=== PATIENT | female | born 1970 | race Caucasian/White ===

== ENCOUNTER → 2020-07-28 13:46 | Outpatient (CLI) | payer BC, SELFPAY ==
--- NOTE | ~2020-07-28 | CT_ITS ---
EXAMINATION: CT brain wo con DATE: 07/28/2020 14:19 INDICATION: Chronic tension headaches TECHNIQUE: Computed tomography (CT) of the head was performed without intravenous contrast. The dose- length product was 599.57 mGy-cm. The mA was adjusted according to patient size. Iterative reconstruc tion technique was employed. COMPARISON: None FINDINGS: No acute intracranial hemorrhage, infarction, mass or mass effect. No ventriculomegaly or m idline shift. Basilar cisterns are patent. Paranasal sinuses are pneumatized. Midline sagittal images are unremarkable. IMPRESSION: 1. No acute intracranial abnormality. Reviewed, dictated and finalized at location B. O FLOATER
--- NOTE | ~2020-07-28 | XR_ITS ---
EXAMINATION:XR cervical spine 4-5V DATE: 07/28/2020 15:12 INDICATION: Neck pain TECHNIQUE: AP, lateral, lateral swimmers and odontoid views of the cervical spine are provided. COMPARISON: None FINDINGS: Alignment is normal. Odontoid is intact. Normal atlantoaxial interval. Vertebral body heights are no rmal. Disc spaces are normal. Negligible uncovertebral and facet osteoarthritis. Prevertebral soft ti ssues are normal. Bilateral apices of the lungs are clear. IMPRESSION: 1. Negligible cervical spondylosis. Reviewed, dictated and finalized at location A. [employer] WORKER
== END ==
PROVIDERS: PCP Chiropractor; Visit Provider Chiropractor
DX: G44.221 Chronic tension-type headache, intractable (principal); M47.812 Spondylosis without myelopathy or radiculopathy, cervical region
CPT/HCPCS: 70450; 72050

== ENCOUNTER 2022-04-17 09:15 | Outpatient (CLI) | payer BC, SELFPAY ==
[2022-04-20 04:27] LABS: CA-125 7 U/mL (<35)
== END 2022-04-17 09:16 | disposition home or self-care (01) ==
PROVIDERS: Visit Provider Student in an Organized Health Care Education/Training Program
DX: R19.00 Intra-abdominal and pelvic swelling, mass and lump, unspecified site (principal)
CPT/HCPCS: 36415; 81500; 86304

== ENCOUNTER 2022-05-09 14:14 | Outpatient (CLI) | payer BC, SELFPAY ==
--- NOTE | 2022-05-09 14:35 | ECG_ITS ---
Measurements Intervals [place] Rate: 47 P: 54 MD: 165 QRS: 26 QRSD: 122 T: 63 QT: 416 QTc: 370 Interpretive Statements SINUS BRADYCARDIA INCOMPLETE RIGHT BUNDLE BRANCH BLOCK BORDERLINE T WAVE ABNORMALITY- HIGH LATERAL LEADS BASELINE ARTIFACT- I, III, AVR, AVL, AVF, V1-V3 ABNORMAL ECG NO PREVIOUS ECG AVAILABLE FOR COMPARISON Electronically Signed On 05-09-2022 15:31:38 ARTIFICIAL LIMB FITTER by Ulises Espino D.O.
[2022-05-09 14:48] LABS: Hematocrit 37.6 % (37.0-47.0); Hemoglobin 12.2 g/dL (12.0-15.0); Mean Corpuscular HGB Conc 32.4 g/dl (32-36); Mean Corpuscular Hemoglobin 30.3 pg (26-34); Mean Corpuscular Volume 93.5 fl (80-100); Mean Platelet Volume 10.2 fl (7.4-10.4); Platelet Count Result 198 k/mm3 (150-375); Red Blood Count 4.02 M/mm3 (4.2-5.4); Red Cell Distribution Width 12.9 % (11.5-14.5); White Blood Count 5.2 K/mm3 (4.5-10.0)
== END 2022-05-09 14:15 | disposition home or self-care (01) ==
LOC: ANHLAB 14:17
PROVIDERS: Referring Provider Nurse Practitioner; Visit Provider Student in an Organized Health Care Education/Training Program
DX: Z01.818 Encounter for other preprocedural examination (principal); R19.00 Intra-abdominal and pelvic swelling, mass and lump, unspecified site; F17.200 Nicotine dependence, unspecified, uncomplicated; R94.31 Abnormal electrocardiogram [ECG] [EKG]
CPT/HCPCS: 36415; 85027; 86850; 86900; 86901; 93005

== ENCOUNTER 2022-05-24 00:38 | Day surgery (SDC) | payer BC, SELFPAY ==
[2022-05-09 10:24] VITALS: BMI 23.3
--- NOTE | 2022-05-09 10:26 | SUR.PREOP ---
Report to the Outpatient Waiting Room, entrance under the green pavilion located off [address], at time _1000___ on date _05/24/22 . Planned Procedure Time: _1200 . Time changes happen often and if your time is changed the preop area will call you the afternoon before. - You and your visitor will be asked to self-screen and do not enter if you have any COVID symptoms. - Only one visitor is requested with a max of two and NO children visitors are allowed at this time. - The patient visitor may be requested to leave or wait in car when not with patient due to distancing restrictions. - A mask is optional within the hospital. Patients may have clear liquids (water, carbonated beverages, clear teas, apple juice) until 3 hours prior to surgery with a maximum of 20 ounces. - No food from midnight until time of surgery - Infants may have breast milk until 4 hours before surgery, formula 6 hours prior to surgery. - Children will be allowed to drink immediately following surgery. If applicable, please bring a bottle or sippy cup to assist with drinking. Juice, water, soda, and popsicles are readily available. For infants on formula, please bring formula the day of surgery. Pacifiers are allowed. Take the following medications with a SIP of water the morning of surgery: _alprazolam,aripiprazole,bupropion,duloxetine Medications to discontinue per physician ____n/a Date to take last dose____n/a Please no make-up, nail nigerien, hairspray, perfume, deodorant, or body powder the day of surgery. No jewelry (including any body piercings) or valuables the day of surgery, leave them at home. Please take a shower or bath the night before, or the morning of, surgery with an antibacterial soap. Wear comfortable, loose fitting clothing. Children are encouraged to wear pajamas. - Jewelry must be removed prior to entering the operating room. Rings and piercings that are not removed may be cut off. - The hospital will not accept responsibility for valuables. - Please leave all valuables, including medications, at home the day of surgery. If you are going home after surgery, a licensed class a regional drivers must drive you home. - NO public transportation without another adult if you receive anesthesia. - We recommend that an adult stay with you for 24 hours following discharge. - We also recommend that you do not drive, make important decision, drink alcoholic beverages, or take any drugs that were not prescribed by your health care provider for at least 24 hours after your discharge time. For Pediatric surgeries, we recommend two adults accompany the child home. Follow any additional instructions given to you from your surgeon. If you or anyone in your household have experienced Covid symptoms in the past week, please notify your surgeon or the nurse liaison at the phone number below for possible testing. Telephone instructions given to _edward gillette and asked if any additional questions and then verbalized understanding. Patient advised to call surgeon office or pre surgery nurse liaison [phone] if any additional questions.
--- NOTE | 2022-05-23 14:29 | PM.IMHP ---
H&P: HPI History of Present Illness Date/Time: 05/23/22 14:29 Chief Complaint: Adnexal mass Narrative: 51-year-old female here for laparoscopic bilateral oophorectomy for adnexa mass.? Patient had a CT scan to evaluate her kidneys and had an incidental finding of a complex left ovarian mass.? Patient had pelvic ultrasound which confirmed findings.? Patient had CA- 125 levels drawn which were within normal levels.? Patient reports a paternal aunt with ovarian cancer. Pt had a hysterectomy previously for AUB. Pt requests oophorectomy. Review of Systems Cardiovascular: Cardiovascular: Denies chest pain, Denies leg edema, Denies palpitations, Denies dyspnea and Denies dyspnea on exertion Respiratory: Respiratory: Denies cough, Denies dyspnea and Denies dyspnea on exertion Gastrointestinal: Gastrointestinal: Denies abdominal pain, Denies constipation, Denies diarrhea, Denies nausea and Denies vomiting Genitourinary: Genitourinary: Denies hematuria, Denies urinary frequency, Denies dysuria, Denies pelvic pain, Denies urinary incontinence and Denies vaginal discharge Neurologic: Reports system reviewed and no additional complaints, except as documented Psychiatric: Psychiatric: Reports no additional psychiatric complaints Endocrine: Endocrine: Denies palpitations PMFSH Past Medical History Medical History Anxiety Depression History of hypertension Pelvic mass Surgical History Surgical History Delivery by section x 3 H/O tubal ligation (~1991) H/O: hysterectomy (~2002) History of orthopedic surgery L arm nodule/ lump removed Family History Family History Grandparent Diabetes mellitus maternal grandmother Mother Hypertension Heart disease Lupus erythematosus Parkinson disease Other H/O ovarian cancer paternal aunt Sibling HPV (human papilloma virus) infection sister COPD (chronic obstructive pulmonary disease) sister Social History Social History Smoking status: Former smoker Smoking end date: 06/17/99 Additional smoking assessment comments: 1 ppd x 20 years Alcohol intake: never Substance use: never Substance use type: marijuana Other substance usage details: occasional use for insomnia,smoking Additional living arrangements comments: 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[employer]) Gender identity (if verbalized by the patient): Female Sexual Orientation (if Verbalized by the Patient): Straight or Heterosexual Spiritual care concerns: No Meds Home Medications and Allergies Home Medications Medication Instructions Recorded Confirmed Type aripiprazole 5 mg tablet (Abilify) 5 mg PO DAILY 04/17/22 05/09/22 History bupropion HCl 300 mg 24 hr tablet, 300 mg PO QAM 04/17/22 05/09/22 History extended release (Wellbutrin XL) duloxetine 20 mg capsule,delayed 30 mg PO DAILY 04/17/22 05/09/22 History release alprazolam 1 mg tablet 1 mg PO TID 05/09/22 05/09/22 History Allergies Allergy/AdvReac Type Severity Reaction Status Date / Time No Known Allergies Allergy Verified 05/09/22 09:56 Exam Const: General: no acute distress Eyes: EOM: EOMs intact bilaterally Neck: Neck: supple Thyroid: thyroid normal Chest: Breast/axilla inspection: normal inspection of the breasts Breast/axilla palpation: normal palpation of the breasts, normal palpation of the axillae and no axillary lymphadenopathy Resp: Effort & Inspection: normal respiratory effort Auscultation: clear to auscultation bilaterally Cardio: Rate: regular rate Rhythm: regular rhythm GI: Inspection: non-distended GI Palp: Yes Soft to palpation, No Tenderness to palpation present (GI) and No Guarding due to palpation
[2022-05-24] VITALS (7 sets, daily range): BP systolic 122–154; BP diastolic 63–88; PULSE 55–68; RESP 12–20; TEMP 36.4; O2SAT 100
[2022-05-24] MEDS: ACETAMINOPHEN 500 MG TABLET 1000 MG PO (10:46)
[2022-05-24] MEDS: LACTATED RINGERS 1,000 ML 30 ML IV CONT ×2 (10:55→14:01)
[2022-05-24] MEDS: KETOROLAC 15 MG/ML VIAL (*BKC) IV PUSH (11:04)
--- NOTE | 2022-05-24 11:05 | WPDHPUPDATE1 ---
History and Physical Update Update Date/Time: 05/24/22 11:05 History and Physical has been reviewed, including an updated exam of the patient. There are NO changes in the patient's condition. Risks, benefits, and alternatives have been discussed and questions answered. Patient agrees to proceed with procedure.
--- NOTE | 2022-05-24 11:27 | WPDANESEPPF ---
Anes - Initial Pre Proc Eval Procedure: Operation Date: 05/24/22 12:00 Proposed Procedures p Laparoscopic Bilateral Oophorectomy - Javy Garnett MD Date/Time: 05/24/22 11:27 Surgeon: Javy Garnett MD Pre Op Diagnosis: left ovarian cyst Patient Data Age: 51 Gender: F Height: 1.65 m Weight: 63.63 kg Allergies Allergy/AdvReac Type Severity Reaction Status Date / Time No Known Allergies Allergy Verified 05/24/22 10:37 Home Medications Medication Instructions Recorded Confirmed Type aripiprazole 5 mg tablet (Abilify) 5 mg PO DAILY 04/17/22 05/24/22 History bupropion HCl 300 mg 24 hr tablet, 300 mg PO QAM 04/17/22 05/24/22 History extended release (Wellbutrin XL) duloxetine 20 mg capsule,delayed 30 mg PO DAILY 04/17/22 05/24/22 History release alprazolam 1 mg tablet 1 mg PO TID 05/09/22 05/24/22 History ascorbate calcium (vitamin C) 500 500 mg PO DAILY 05/24/22 05/24/22 History mg tablet calcium carb-ergocalciferol (vit 1 tablet PO DAILY 05/24/22 05/24/22 History D2) 600 mg calcium-200 unit tablet wjmrhaxk-vvw-augpa ac 400 1 tablet PO DAILY 05/24/22 05/24/22 History mcg-calcium carb 500 mg-vit K1 20 mcg tablet omega 5-llk-hfp-fish oil 1,200 mg 1 cap PO DAILY 05/24/22 05/24/22 History (144 mg-216 mg) capsule (Fish Oil) vitamin B complex 1 tablet PO DAILY 05/24/22 05/24/22 History Patient hx anesthesia problems: none Family hx anesthesia problems: none Results Review: All pre-operative results and documents have been reviewed as part of the pre-operative evaluation. COUNTS INCLUDE 234 BEDS AT THE [facility] Past Medical History Medical History Anxiety Depression History of hypertension Pelvic mass Surgical History Surgical History Delivery by section x 3 H/O tubal ligation (~1991) H/O: hysterectomy (~2002) History of orthopedic surgery L arm nodule/ lump removed Family History Family History Grandparent Diabetes mellitus maternal grandmother Mother Hypertension Heart disease Lupus erythematosus Parkinson disease Other H/O ovarian cancer paternal aunt Sibling HPV (human papilloma virus) infection sister COPD (chronic obstructive pulmonary disease) sister Social History Social History Smoking status: Former smoker Smoking end date: 06/17/99 Additional smoking assessment comments: 1 ppd x 20 years Alcohol intake: never Substance use: never Substance use type: marijuana Other substance usage details: occasional use for insomnia,smoking Living arrangements: with family Additional living arrangements comments: 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[employer]) Gender identity (if verbalized by the patient): Female Sexual Orientation (if Verbalized by the Patient): Straight or Heterosexual Spiritual care concerns: No Anes - Eval Final PreProcedure Day of Procedure 05/24/22 11:27 Patient weight: normal Heart: regular rate and rhythm Lungs: clear to auscultation Airway: Mallampati scale class II Neurological: alert and oriented Last oral intake: >/= 8 hours ASA classification: II Emergent: no Anesthetic plan: proceed Anesthesia type and monitoring: general ETT and standard monitoring Results Review: All pre-operative results and documents have been reviewed as part of the pre-operative evaluation. Informed Consent: The patient's anesthetic plan and its attendant risks and benefits were discussed with the patient/family/POA. Questions were solicited and answers provided to the satisfaction of the patient/family/POA.
[2022-05-24] MEDS: LIDO 1%/EPINEPHRINE/PF 1:200,000 30 ML VIAL XX (13:40)
--- NOTE | 2022-05-24 13:42 | W.PM.PROC2 ---
Procedure Note - Detailed Date of Procedure 05/24/22 Pre-op Diagnosis left ovarian cyst Post-op Diagnosis Same Procedure Performed pelvic washing laparoscopic bilateral oophorectomy 60 minutes lysis of adhesions Surgeon Javy Garnett MD Anesthesia General Indications left ovarian cyst in a postmenopausal female Findings Dense omental adhesions to the pelvic side wall and anterior abdominal wall. Enlarge left ovarian cyst Description of Procedure The patient was taken to the operating room where general endotracheal anesthesia was undertaken and found to be adequate. She was then prepped and draped in the dorsal lithotomy position and placed in adjustable stirrups. A pre-operative team brief and a time out were completed. A catheter was placed to drain the bladder. Attention was then turned to the abdomen. A 12 mm skin incision was made in the umbilicus. A 12 mm optical trocar was then placed with direct camera vpostmenopausal female.on of the abdominal layers during placement. The trocar stylet was removed and the camera was used to verify intra-abdominal placement. CO2 insufflation was then connected and resumed. The pelvis was inspected. A left lower quadrant 5 mm port was placed, in addition to a right lower quadrant 5 port in the standard fashion after using local anesthetic. The pelvis was then surveyed. peritoneal washings were collected given adnexal mass in a Dense omental adhesions were noted. Omental adhesions were taken down from anterior abdominal wall using the LigaSure device. Lysis of adhesions took approximately 60 minutes. After omental adhesions were taken down from the anterior abdominal wall, adhesions were also noted the pelvic sidewalls bilaterally. Omental adhesions were covering the adnexa these adhesions were again taken down using the LigaSure device to identify correct anatomy. To aid in dissection, the retroperitoneum was entered on the left pelvis to better identify the ovary. Enlarged ovary with approximately 3.5 cm cyst was noted retroperitoneal under adhesions. After adhesions were taken down and correct anatomy was identified. The right ovary was grasped and the IP ligament was identified. The course of the ureter was observed and felt to be far away the surgical field. IP ligament is associated vessels were ligated and transected using LigaSure device this transection was carried out to remove the ovary from the right pelvic sidewall. Similar procedure was performed left adnexa removing left ovary and cyst from the pelvic sidewall. A laparoscopic Endo pouch was introduced through the umbilical port. Both ovaries were placed within the Endo pouch. The pouch was brought through the umbilical port site. Cystic fluid was aspirated from the ovarian cyst within Endo pouch. Both ovaries in the pouch removed through the umbilicus without complication. Trocar was reintroduced into the umbilical port site. Additional pelvic survey was performed. There was some bleeding noted on the left pelvic sidewall in the area of retroperitoneal blunt dissection. electric cautery was attempted with the LigaSure device. Retroperitoneum was again noted to have a small amount of brisk bleeding. Ray-Umer was introduced into the abdomen through laparoscopic port sites. Direct pressure was applied to the area of bleeding. intraoperative General surgery consultation was placed to help evaluate retroperitoneal bleeding. While waiting for consultation direct pressure was held over the bleeding. Dr. Erickson was able to observe the bleeding in the operating room. After removal of the Ray-Umer bleeding had noted to slow. Dr. Erickson also agreed that it appeared to be venous bleeding. Surgiflo and hemaderm were placed over the area of bleeding. There is no pooling of blood and good hemostasis was obtained. All Ray tecs were removed from the abdomen. The surgical field was thoroughly irrigated using normal saline. All surgical be
[2022-05-24] MEDS: fentaNYL CITRATE INJ (*CRX) 100 MCG/2 ML VIAL 25 MCG IV PUSH ×3 (15:08→15:59)
== END 2022-05-24 16:05 | disposition home or self-care (01) ==
PROVIDERS: Visit Provider Student in an Organized Health Care Education/Training Program
PROC: (CPT 49320; principal; 2022-05-24 12:00)
DX: D27.1 Benign neoplasm of left ovary (principal); N73.6 Female pelvic peritoneal adhesions (postinfective); F41.9 Anxiety disorder, unspecified; F32.A Depression, unspecified; F12.90 Cannabis use, unspecified, uncomplicated; Z90.710 Acquired absence of both cervix and uterus
CPT/HCPCS: 58661; 88108; 88305; A9270; J1100; J1885; J2250; J2405; J2704; J2710; J3010; J7030; J7120